=== PATIENT | female | born 1965 | race Caucasian/White ===

== ENCOUNTER 2024-03-07 06:27 | Day surgery (SDC) | payer BC, OTHER ==
[2024-03-07] MEDS: Lactated Ringers 1,000 ML IV SCH (07:11)
[2024-03-07] MEDS ORDERED: Propofol 200 MG/20 ML SDV ONE (07:21)
[2024-03-07] MEDS ORDERED: fentaNYL 50 MCG/ML SDV ONE (07:21)
[2024-03-07] MEDS ORDERED: Midazolam 1 MG/ML 2 ML SDV ONE (07:21)
[2024-03-07 09:21] VITALS: BP 112/81; PULSE 66
== END 2024-03-07 09:25 | disposition home or self-care (01) ==
LOC: JP.SDS 06:27
PROVIDERS: ATTEND Surgery
DX: Z12.11 Encounter for screening for malignant neoplasm of colon (principal); K57.30 Diverticulosis of large intestine without perforation or abscess without bleeding; E66.9 Obesity, unspecified; Z80.0 Family history of malignant neoplasm of digestive organs
CPT/HCPCS: 00812; 45378; J2250; J2704; J3010; J7120